=== PATIENT | male | born 1960 | race American Indian/Alaskan Native ===

== ENCOUNTER 2018-10-30 11:44 | Outpatient (CLI) | payer OTHER | END 2018-10-30 11:45 | disposition home or self-care (01) | LOC: PF 11:44 | PROVIDERS: ATTEND Internal Medicine | DX: Z02.71 Encounter for disability determination (principal); K21.9 Gastro-esophageal reflux disease without esophagitis; M19.90 Unspecified osteoarthritis, unspecified site; G62.9 Polyneuropathy, unspecified; B19.20 Unspecified viral hepatitis C without hepatic coma; K76.9 Liver disease, unspecified | CPT/HCPCS: 94010 ==